=== PATIENT | female | born 1975 | race Caucasian/White ===

== ENCOUNTER 2023-03-25 08:45 | Day surgery (SDC) | payer BC, SELFPAY ==
[2023-03-23 11:00] VITALS: BMI 32.4
--- NOTE | 2023-03-24 14:17 | P.CONAN_ITS ---
Documented by User: Sylwia Walls NP 03/24/23 14:17 HPI - Anesthesia Eval Consult details Narrative: 48yo F for Colonoscopy PMFSH Active Problems Active Problems: All Active Problems (Updated 03/23/23 @ 11:00 by Vianey Fitch RN) Shingles (Acute) Past Medical History Medical History [place]-Schlatter's disease Depression GERD (gastroesophageal reflux disease) Surgical History Surgical History Hx of shoulder surgery Hx of elbow surgery Hx of knee surgery Hx of appendectomy Hx of cholecystectomy Social History Social History (Updated 03/23/23 @ 11:01 by Vianey Fitch RN) Household Members: Family Patient Tobacco Use Status: Current everyday Tobacco user Cigarettes Per Day: 10 Use of substances other than those prescribed or required for medical reasons: Yes Substance Use Frequency: Occasionally Are you DNR?: No Advance Directives: No Advance Directives Information Provided: Yes Meds Allergies Allergy/AdvReac Type Severity Reaction Status Date / Time dichloralphenazone Allergy Severe ANAPHYLAXSI Verified 03/25/23 09:00 [From MIDRIN] S isometheptene [From MIDRIN] Allergy Severe ANAPHYLAXSI Verified 03/25/23 09:00 S Home Medications Medication Instructions Recorded Confirmed Last Taken Type sumatriptan succinate 25 mg tablet 25 mg PO Q2-4H PRN 11/22/19 11/22/19 Unknown History (Imitrex) amitriptyline 25 mg tablet 25 mg PO BEDTIME 03/23/23 03/23/23 Unknown History bupropion HCl 300 mg 24 hr tablet, 300 mg PO QAM 03/23/23 03/23/23 Unknown History extended release cholecalciferol (vitamin D3) 25 25 mcg PO DAILY 03/23/23 03/23/23 Unknown History mcg (1,000 unit) capsule (Vitamin D3) escitalopram oxalate 10 mg tablet 10 mg PO DAILY 03/23/23 03/23/23 Unknown History multivitamin 1 tab PO DAILY 03/23/23 03/23/23 Unknown History Exam Height,Weight and Vital Signs: Height 5 ft 7 in Weight 93.894 kg Assessment and Plan Assessment Anesthesia Assessment: Chart Reviewed Documented by User: Marielena Wilkins MD 03/25/23 09:21 PMF Past Medical History Medical History [place]-Schlatter's disease Depression GERD (gastroesophageal reflux disease) Family History Family history of problems with anesthesia: No Surgical History Surgical History Hx of shoulder surgery Hx of elbow surgery Hx of knee surgery Hx of appendectomy Hx of cholecystectomy History of Problems with Anesthesia: No Social History Social History (Updated 03/23/23 @ 11:01 by Vianey Fitch RN) Household Members: Family Patient Tobacco Use Status: Current everyday Tobacco user Cigarettes Per Day: 10 Use of substances other than those prescribed or required for medical reasons: Yes Substance Use Frequency: Occasionally Are you DNR?: No Advance Directives: No Advance Directives Information Provided: Yes Meds Allergies Allergy/AdvReac Type Severity Reaction Status Date / Time dichloralphenazone Allergy Severe ANAPHYLAXSI Verified 03/25/23 09:00 [From MIDRIN] S isometheptene [From MIDRIN] Allergy Severe ANAPHYLAXSI Verified 03/25/23 09:00 S Home Medications Medication Instructions Recorded Confirmed Last Taken Type sumatriptan succinate 25 mg tablet 25 mg PO Q2-4H PRN 11/22/19 11/22/19 Unknown History (Imitrex) amitriptyline 25 mg tablet 25 mg PO BEDTIME 03/23/23 03/23/23 Unknown History bupropion HCl 300 mg 24 hr tablet, 300 mg PO QAM 03/23/23 03/23/23 Unknown History extended release cholecalciferol (vitamin D3) 25 25 mcg PO DAILY 03/23/23 03/23/23 Unknown History mcg (1,000 unit) capsule (Vitamin D3) escitalopram oxalate 10 mg tablet 10 mg PO DAILY 03/23/23 03/23/23 Unknown History multivitamin 1 tab PO DAILY 03/23/23 03/23/23 Unknown History Exam Airway Mallampati Class: II TM Dist: >3cm Neck ROM: Full Assessment and Plan Assessment Anesthesia Assessment: Anesthesia Plan Discussed Final Anesthetic Review Family History of Problems with Anesthesia: No History of Problems with Anesthesia: No NPO: Yes ASA Class: II Final Preanesthetic Review: No Changes in Pt Med Stat, Meds/Allgs Chart Reviewed, Consent Obtained/Reviewed and Anes Risks/Benef Reviewed Patient Risk: Low Procedure Risk: Low Anesthetic Plan Anesthetic Plan: TIVA Disposition: Standard PACU
[2023-03-25 08:51] VITALS: BMI 31.9
[2023-03-25 09:07] LABS: UPreg QC Valid YES; Urine Pregnancy NEGATIVE (NEGATIVE)
[2023-03-25 09:09] VITALS: BP 152/70; PULSE 86; RESP 16; TEMP 35.9; O2SAT 96
[2023-03-25] MEDS: Lactated Ringers 1,000 ML 100 ML IVCONT (09:10)
--- NOTE | 2023-03-25 10:29 | MHC.SHP ---
Pre-Procedural Eval Section A - 24 Hr Update-Section A only Date of Service: 03/25/23 Section B - Complete if H&P > 30 days Chief Complaint: Encounter for screening for malignant neoplasm of Details of Present Illness: see H^P no changes Relevant Family History (Specify if Yes): No Relevant Social History: None Medical History: No relevant PMH Allergies: Allergies Allergy/AdvReac Type Severity Reaction Status Date / Time dichloralphenazone Allergy Severe ANAPHYLAXSI Verified 03/25/23 09:00 [From MIDRIN] S isometheptene [From MIDRIN] Allergy Severe ANAPHYLAXSI Verified 03/25/23 09:00 S Review of Systems Sugical H&P ROS: Negative: Constitution, Cardiovascular, Respiratory, Neurological, Psychiatric, Hem-Onc, Allergic/Immunologic, Gastrointestinal, Genitourinary, Musculoskeletal, Integumentary, Endocrine and Eyes/Ears/Nose/Throat Exam Surgical H&P Exam: Normal: HEENT, Normal: Heart, Normal: Lungs, Normal: Extremities, Normal: Abdomen, Normal: Skin and Normal: Neurological Plan Diagnosis/Plan: Unchanged I have reviewed the history and physical and performed a pertinent physical examination on my patient. No changes have occurred unless specified. Time Spent With Patient Time: Total time managing care of this patient today ____ minutes.
[2023-03-25 11:04] VITALS: BP 138/78; PULSE 84; RESP 16; TEMP 36.2; O2SAT 98
[2023-03-25 11:19] VITALS: BP 141/74; PULSE 82; RESP 16; TEMP 36.2; O2SAT 97
--- NOTE | 2023-03-25 11:55 | OP_ITS ---
DATE OF SERVICE: 03/25/2023 SURGEON: Richar Marques MD INDICATIONS: Colon cancer screening. PREOPERATIVE DIAGNOSIS: POSTOPERATIVE DIAGNOSIS: PROCEDURE PERFORMED: Colonoscopy to the terminal ileum with a snare polypectomy and biopsy. ESTIMATED BLOOD LOSS: COMPLICATIONS: ANESTHESIA: Monitored anesthesia care. ASSISTANTS: SPECIMENS: DESCRIPTION OF PROCEDURE: A history and physical performed. The risks and benefits of the procedure were explained to the patient. Informed consent was obtained. The patient was placed in the left lateral decubitus position. A digital rectal exam was performed and was found to be normal. The Olympus pediatric video colonoscope was introduced into the rectum and advanced to the cecum. The cecum was identified by transillumination, palpation, and identification of ileocecal valve. Examination was performed. The scope was removed. She tolerated the procedure well and was taken to recovery area in stable condition. FINDINGS: The terminal ileum was examined and appeared normal. The visualized colonic mucosa was normal. Two polyps were identified. Both were less than 10 mm. The first was located at 60 cm and was removed with a cold snare. The second was located at the rectum and measured less than 5 mm. This was removed with biopsy forceps. No other polyps were identified. The quality of the prep was good. Retroflexed examination showed some small internal hemorrhoids. IMPRESSION: Colon polyps. RECOMMENDATION: Follow up the biopsy results. MD DEWAYNE Javier/ZENAL / [id number]
== END 2023-03-25 11:35 | disposition home or self-care (01) ==
PROVIDERS: Nurse Practitioner; PCP Nurse Practitioner Family; Visit Provider Internal Medicine Gastroenterology
PROC: 0DJD8ZZ Inspection of Lower Intestinal Tract, Via Natural or Artificial Opening Endoscopic (ICD-10-PCS; CPT 45378; principal; 2023-03-25 09:50)
DX: Z12.11 Encounter for screening for malignant neoplasm of colon (principal); D12.4 Benign neoplasm of descending colon; K62.1 Rectal polyp; K64.8 Other hemorrhoids
CPT/HCPCS: 45385; 45380; 81025; 88305; J1885; J2405; J2704; J3010